=== PATIENT | female | born 1970 | race Caucasian/White ===

== ENCOUNTER 2018-06-23 14:14 | Emergency (ER) | payer OTHER ==
[2018-06-23] MEDS ORDERED: NA CHLORIDE 0.9% 1,000 ML ONE (15:04)
[2018-06-23 15:14] LABS: Absolute Lymphocytes (CBC) 3.1 K/uL (0.7-4.9); Absolute Monocytes 0.7 K/uL (0.1-1.3); Absolute Neutrophil 5.9 K/uL (1.8-8.0); Basophils % 0.2 % (0-1.3); Hematocrit 33.1 % (36.0-45.0); MCH 34.7 pg (27.0-35.0); MCV 100.7 fL (80-100); MPV 7.7 fL (7.6-11.3); Monocytes % 7.4 % (3.3-12.3); RBC Red Blood Cell Count 3.29 M/uL (3.86-4.86)
[2018-06-23 15:24] LABS: Potassium 3.9 mmol/L (3.5-5.1)
--- NOTE | 2018-06-23 16:31 | EDPHYS ---
Physician Documentation [facility] Name: Priya Payne Age: 47 yrs Sex: Female : 1970 Arrival Date: 06/23/2018 Time: 14:19 Bed Ultrasound Private MD: ED Physician Juan A Nieto HPI: 06/23 15:32 This 47 yrs old Female presents to ER via Ambulatory with complaints of kb Vaginal Bleeding. 15:32 The patient presents with vaginal bleeding that is moderate, with clots. Onset: The kb symptoms/episode began/occurred 7 day(s) ago. Modifying factors: The symptoms are alleviated by nothing, the symptoms are aggravated by nothing. Associated signs and symptoms: Pertinent positives: vaginal discharge. Severity of symptoms: At their worst the symptoms were moderate, in the emergency department the symptoms are unchanged. The patient has not experienced similar symptoms in the past. The patient has not recently seen a physician. Pt states she started her period on 06/17/18 and has been passing large clots. Reports symptoms improved for 2 days, but bleeding became heavier this morning and she passed another clot. Has appt with Dr Diaz on 07/31/18. Denies shortness of breath, dizziness, chest pain, abdominal pain. 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 - Social history:: Smoking status: Patient/guardian denies using tobacco. - Ebola Screening: : No symptoms or risks identified at this time. ROS: 15:32 Constitutional: Negative for fever, chills, and weight loss, Cardiovascular: Negative kb for chest pain, palpitations, and edema, Respiratory: Negative for shortness of breath, cough, wheezing, and pleuritic chest pain, Abdomen/GI: Negative for abdominal pain, nausea, vomiting, diarrhea, and constipation, Back: Negative for injury and pain, MS/Extremity: Negative for injury and deformity, Skin: Negative for injury, rash, and discoloration, Neuro: Negative for headache, weakness, numbness, tingling, and seizure. 15:32 : Positive for vaginal bleeding. Exam: 15:32 Constitutional: This is a well developed, well nourished patient who is awake, alert, kb and in no acute distress. Head/Face: Normocephalic, atraumatic. Chest/axilla: Normal chest wall appearance and motion. Nontender with no deformity. No lesions are appreciated. Cardiovascular: Regular rate and rhythm with a normal S1 and S2. No gallops, murmurs, or rubs. Normal PMI, no JVD. No pulse deficits. Respiratory: Lungs have equal breath sounds bilaterally, clear to auscultation and percussion. No rales, rhonchi or wheezes noted. No increased work of breathing, no retractions or nasal flaring. Abdomen/GI: Soft, non-tender, with normal bowel sounds. No distension or tympany. No guarding or rebound. No evidence of tenderness throughout. Back: No spinal tenderness. No costovertebral tenderness. Full range of motion. Skin: Warm, dry with normal turgor. Normal color with no rashes, no lesions, and no evidence of cellulitis. MS/ Extremity: Pulses equal, no cyanosis. Neurovascular intact. Full, normal range of motion. Neuro: Awake and alert, GCS 15, oriented to person, place, time, and situation. Cranial nerves II-XII grossly intact. Motor strength 5/5 in all extremities. Sensory grossly intact. Cerebellar exam normal. Normal gait. Vital Signs: 14:32 BP 157 / 96; Pulse 126; Resp 16 S; Temp 98.4(O); Pulse Ox 100% on R/A; Weight 81.65 kg jl7 (R); Height 5 ft. 5 in. (165.10 cm) (R); Pain 5/10; 15:29 Pulse 115; la1 15:31 BP 117 / 63; la1 16:48 BP 131 / 74; Pulse 102; Resp 16; Pulse Ox 100% on R/A; la1 14:32 Body Mass Index 29.95 (81.65 kg, 165.10 cm) 7 MDM: 14:36 Patient medically screened. [facility] 15:32 Data reviewed: vital signs, nurses notes. Data interpreted: Pulse oximetry: on room air kb is 100 %. Interpretation: normal. 16:29 Counseling: I had a detailed discussion with the patient and/or guardian regarding: the kb historical points, exam findings, and any diagnostic results supporting the discharge/admit diagnosis, lab results, radiology results, the need for outpatient follow up, an OB/Gyne specialist, to return to the emergency department if symptoms worsen or persist or if there are any questions or concerns that arise at home. ED course: Pt educated to keep appt with Dr Diaz. Return for shortness of breath, dizziness, or worsening symptoms. . 06/23 14:39 Order name: Basic Metabolic Panel; Complete Time: 15:28 kb 06/23 14:39 Order name: CBC with Diff; Complete Time: 15:46 kb 06/23 14:39 Order name: Type And Screen; Complete Time: 15:58 kb 06/23 15:13 Order name: Transvaginal Study (probe) kb 06/23 15:52 Order name: ABO/RH no charge; Complete Time: 15:58 EDMS 06/23 14:39 Order name: Urine Test (obtain specimen); Complete Time: 16:47 kb 06/23 14:39 Order name: IV Saline Lock; Complete Time: 14:59 kb 06/23 14:39 Order name: Labs collected and sent; Complete Time: 14:59 kb 06/23 14:39 Order name: NPO; Complete Time: 14:59 kb 06/23 14:39 Order name: Urine Dipstick-Ancillary (obtain specimen); Complete Time: 16:47 kb Administered Medications: 15:20 Drug: NS 0.9% 1000 ml Route: IV; Rate: 1000 ml; Site: right antecubital; la1 16:20 Follow up: IV Status: Completed infusion la1 Disposition: 06/24 11:34 Co-signature as Attending Physician, Juan A Nieto MD I agree with the assessment and costa plan of care. Disposition: 06/23/18 16:30 Discharged to Home. Impression: Abnormal uterine and vaginal bleeding, unspecified. - Condition is Stable. - Discharge Instructions: Abnormal Uterine Bleeding, [id number]. - Medication Reconciliation Form, Thank You Letter, Antibiotic Education, Prescription Opioid Use form. - Follow up: Emergency Department; When: As needed; Reason: Worsening of condition. Follow up: Misa Cam MD; When: on scheduled appt. Signatures: Dispatcher [employer] EDMS Nathalie Hooker, SITE TECHNICIAN-C SITE TECHNICIAN-Juan A Argueta MD MD cha Attema, Lee, RN RN la1 Arsen Sihn RN RN jl7 Corrections: (The following items were deleted from the chart) 08 16:31 16:30 06/23/2018 16:30 Discharged to Home. Impression: Abnormal uterine and vaginal kb bleeding, unspecified. Condition is Stable. Forms are Medication Reconciliation Form, Thank You Letter, Antibiotic Education, Prescription Opioid Use. Follow up: Emergency Department; When: As needed; Reason: Worsening of condition. Follow up: Private Physician; When: 2 - 3 days; Reason: Recheck today's complaints, Continuance of care, Re-evaluation by your physician. kb 16:48 16:31 06/23/2018 16:30 Discharged to Home. Impression: Abnormal uterine and vaginal la1 bleeding, unspecified. Condition is Stable. Discharge Instructions: Abnormal Uterine Bleeding, [id number]. Forms are Medication Reconciliation Form, Thank You Letter, Antibiotic Education, Prescription Opioid Use. Follow up: Emergency Department; When: As needed; Reason: Worsening of condition. Follow up: Misa Cam; When: on scheduled appt. kb
--- NOTE | 2018-06-23 16:31 | ER ---
Nurse's Notes [facility] Name: Priya Payne Age: 47 yrs Sex: Female : 1970 Arrival Date: 06/23/2018 Time: 14:19 Bed Ultrasound Private MD: Diagnosis: Abnormal uterine and vaginal bleeding, unspecified Presentation: 06/23 14:29 Presenting complaint: Patient states: Reports heaving period since June 17 with a jl7 lot of large orange-sized clots and cramping and left flank pain. Denies urinary symptoms, denies N/V/D. Transition of care: patient was not received from another setting of care. Onset of symptoms was June 17, 2018. Risk Assessment: Do you want to hurt yourself or someone else? Patient reports no desire to harm self or others. Initial Sepsis Screen: Does the patient meet any 2 criteria? No. Patient's initial sepsis screen is negative. Does the patient have a suspected source of infection? No. Patient's initial sepsis screen is negative. Care prior to arrival: None. 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 - Social history:: Smoking status: Patient/guardian denies using tobacco. - Ebola Screening: : No symptoms or risks identified at this time. Screenin:07 Abuse screen: Denies threats or abuse. Nutritional screening: No deficits noted. la1 Tuberculosis screening: No symptoms or risk factors identified. Fall Risk None identified. Assessment: 15:07 General: Appears uncomfortable, Behavior is calm, cooperative. Pain: Denies pain. la1 Neuro: Level of Consciousness is awake, alert, obeys commands, Oriented to person, place, time, situation. Cardiovascular: Capillary refill < 3 seconds Patient's skin is warm and dry. Respiratory: Airway is patent Respiratory effort is even, unlabored, Respiratory pattern is regular, symmetrical. GI: Abdomen is round non-distended, Bowel sounds present X 4 quads. Abd is soft and non tender X 4 quads. : Last void was June 23, 2018. Reports vaginal bleeding that is with clots, heavy flow. EENT: No deficits noted. No signs and/or symptoms were reported regarding the EENT system. Derm: No signs and/or symptoms reported regarding the dermatologic system. 15:21 Reassessment: Patient appears in no apparent distress at this time. No changes from la1 previously documented assessment. Vital Signs: 14:32 BP 157 / 96; Pulse 126; Resp 16 S; Temp 98.4(O); Pulse Ox 100% on R/A; Weight 81.65 kg jl7 (R); Height 5 ft. 5 in. (165.10 cm) (R); Pain 5/10; 15:29 Pulse 115; la1 15:31 BP 117 / 63; la1 16:48 BP 131 / 74; Pulse 102; Resp 16; Pulse Ox 100% on R/A; la1 14:32 Body Mass Index 29.95 (81.65 kg, 165.10 cm) jl7 ED Course: 14:19 Patient arrived in ED. tw3 14:28 Arsen Shin, NELLY is Primary Nurse. jl7 14:31 Triage completed. jl7 14:32 Nathalie Hooker FNP-C [facility]. kb 14:32 Juan A Nieto MD is Attending Physician. kb 14:32 Arm band placed on right wrist. jl7 15:06 Brayden Mckenzie, NELLY is Primary Nurse. la1 15:06 No provider procedures requiring assistance completed. Inserted saline lock: 22 gauge la1 in right antecubital area, using aseptic technique. Blood collected. 15:07 Bed in low position. Call light in reach. Side rails up X 1. Pulse ox on. NIBP on. la1 16:11 Transvaginal Study (probe) In Process Unspecified. EDMS 16:31 Misa Cam MD is Referral Physician. kb 16:46 Urine collected: clean catch specimen, clear, franchesca colored. jp3 16:48 IV discontinued, intact, bleeding controlled, No redness/swelling at site. Pressure la1 dressing applied. Administered Medications: 15:20 Drug: NS 0.9% 1000 ml Route: IV; Rate: 1000 ml; Site: right antecubital; la1 16:20 Follow up: IV Status: Completed infusion la1 Outcome: 16:30 Discharge ordered by MD. monroe 16:48 Discharged to home ambulatory. la1 16:48 Condition: stable 16:48 Discharge instructions given to patient, Instructed on discharge instructions, follow up and referral plans. Demonstrated understanding of instructions, follow-up care. 16:48 Patient left the ED. la1 Signatures: Dispatcher [employer] EDMS Nathalie Hooker, TAMI-C UTILIZATION MANAGER-Brayden Beal RN RN la1 Arsen Sihn RN RN tae7 Gisel Love 3 Michel Villafuerte jp3
--- NOTE | 2018-06-23 20:01 | RAD REPORT ---
EXAM DESCRIPTION: US - Transvaginal Study Probe - 06/23/2018 4:11 pm CLINICAL HISTORY: Vaginal bleeding. Preliminary findings provided at the time of the study. COMPARISON: None. TECHNIQUE: Endovaginal sonography was performed. FINDINGS: Uterus is 10.6 x 6.9 x 7.0 cm. No discrete myometrial mass identifiable. Endometrial cavit y is dilated and enlarged with a 5 centimeter echogenic mass. This may be a pronounced endometrial hy perplasia or endometrial mass. Simple hematoma is less likely. The endometrium - myometrium interface does appear to be preserved. No ovarian tissue is clearly defined. A 2.8 centimeter thin-walled cystic mass in the right adnexa is identified but is not associated with any ovarian tissue. This is probably a paraovarian cyst. No fr ee fluid in the cul-de-sac. IMPRESSION: Dilated endometrial cavity from pronounced endometrial hyperplasia or possible endometri al mass. Hematoma is a lesser consideration. Nonvisualization of either ovary. A 2.8 centimeter right paraovarian cyst is seen.
== END 2018-06-23 16:48 | disposition home or self-care (01) ==
LOC: ER 14:14
DX: N93.9 Abnormal uterine and vaginal bleeding, unspecified (principal); I10 Essential (primary) hypertension; E11.9 Type 2 diabetes mellitus without complications; E78.5 Hyperlipidemia, unspecified; Z88.0 Allergy status to penicillin; Z88.2 Allergy status to sulfonamides
CPT/HCPCS: 36415; 76830; 80048; 85025; 86850; 86900; 86901; 96360; 99284; J7030

== ENCOUNTER 2018-08-04 11:18 | Emergency (ER) | payer OTHER ==
[2018-08-04] MEDS ORDERED: MORPHINE 4 MG/ML SYR ONE ×2 (12:21→14:46)
[2018-08-04] MEDS ORDERED: NA CHLORIDE 0.9% 1,000 ML ONE ×2 (12:21→14:47)
[2018-08-04] MEDS ORDERED: ONDANSETRON 4 MG/2 ML VIAL ONE ×2 (12:21→14:46)
[2018-08-04] MEDS ORDERED: ACETAMINOPHEN 500 MG TAB ONE (12:22)
[2018-08-04 12:23] LABS: Absolute Lymphocytes (CBC) 0.5 K/uL (0.7-4.9); Absolute Monocytes 0.9 K/uL (0.1-1.3); Basophils % 0.1 % (0-1.3); Hematocrit 29.8 % (36.0-45.0); Lymphocytes % 3.6 % (15.3-44.8); MCH 33.7 pg (27.0-35.0); MCV 97.2 fL (80-100); MPV 7.8 fL (7.6-11.3); Monocytes % 5.5 % (3.3-12.3); RBC Red Blood Cell Count 3.06 M/uL (3.86-4.86)
[2018-08-04 12:42] LABS: Albumin 3.8 g/dL (3.4-5.0); Bilirubin Direct 0.2 mg/dL (0-0.2); Bilirubin Total 0.6 mg/dL (0.2-1.0); Potassium 3.8 mmol/L (3.5-5.1); Protein, Total 8.1 g/dL (6.4-8.2)
[2018-08-04 13:01] LABS: Blood Morphology Comment NOT SEEN (NOT SEEN); Platelet Estimate ADEQ; Urine White Blood Cell Casts OK
--- NOTE | 2018-08-04 13:35 | RAD REPORT ---
EXAM DESCRIPTION: CT - Abdomen Pelvis W Contrast - 08/04/2018 1:23 pm CLINICAL HISTORY: Abdominal pain/lower abdominal pain with vomiting and diarrhea COMPARISON: 08/02/2018 ultrasound TECHNIQUE: Computed axial tomography of the abdomen pelvis was obtained. 100 cc Isovue-300 was admin istered intravenously. Oral contrast was not requested which limits evaluation of bowel. All CT scans are performed using dose optimization technique as appropriate and may include automated exposure control or mA/KV adjustment according to patient size. FINDINGS: The liver, spleen, pancreas, adrenal and kidneys appear unremarkable. There is no evidence of diverticulitis. The appendix is normal The endometrial canal is heterogeneous and thickened. It contains air IMPRESSION: Thickened and heterogeneous endometrial canal containing air may indicate an infection. A ain necrotic mass is a another consideration but probably is less likely. This all should be correl ated clinically.
[2018-08-04 13:51] LABS: Urine Blood 3+ (NEG); Urine Glucose NEGATIVE (NEG); Urine Protein 1+ (NEG); Urine pH 6.5 (5.0-7.0)
[2018-08-04] MEDS ORDERED: DOXYCYCLINE 100 MG CAP PO ONE (14:30)
[2018-08-04] MEDS ORDERED: IBUPROFEN 200 MG TAB PO ONE (14:46)
[2018-08-04] MEDS ORDERED: IBUPROFEN 400 MG TAB ONE (14:46)
--- NOTE | 2018-08-04 15:02 | EDPHYS ---
Physician Documentation [facility] Name: Priya Payne Age: 47 yrs Sex: Female : 1970 Arrival Date: 08/04/2018 Time: 11:20 Bed 19 Private MD: ED Physician Juan A Nieto HPI: 08/04 12:16 This 47 yrs old Female presents to ER via Ambulatory with complaints of kb Abdominal Cramping, Vomiting. 12:16 The patient presents with abdominal pain in the lower abdomen. Onset: The kb symptoms/episode began/occurred today, at 11:00. The symptoms do not radiate. Associated signs and symptoms: Pertinent positives: nausea and vomiting, vaginal bleeding. The symptoms are described as constant. Modifying factors: The symptoms are alleviated by nothing, the symptoms are aggravated by pressure. Severity of pain: At its worst the pain was moderate in the emergency department the pain is unchanged. The patient has not experienced similar symptoms in the past. The patient has not recently seen a physician. pt c/o nausea and vomiting since 1100. States she is still having vaginal bleeding that started 06/17/18 (seeing Dr Cam for that). . 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 - Social history:: Smoking status: Patient/guardian denies using tobacco. - Ebola Screening: : No symptoms or risks identified at this time. ROS: 12:14 Cardiovascular: Negative for chest pain, palpitations, and edema, Respiratory: Negative kb for shortness of breath, cough, wheezing, and pleuritic chest pain, Back: Negative for injury and pain, : Negative for injury, bleeding, discharge, and swelling, MS/Extremity: Negative for injury and deformity, Skin: Negative for injury, rash, and discoloration, Neuro: Negative for headache, weakness, numbness, tingling, and seizure. 12:14 Constitutional: Positive for fever, Negative for body aches, chills, fatigue, malaise, poor PO intake, weight loss. 12:14 Abdomen/GI: Positive for abdominal pain, nausea and vomiting. Exam: 12:15 Head/Face: Normocephalic, atraumatic. Chest/axilla: Normal chest wall appearance and kb motion. Nontender with no deformity. No lesions are appreciated. Cardiovascular: Regular rate and rhythm with a normal S1 and S2. No gallops, murmurs, or rubs. Normal PMI, no JVD. No pulse deficits. Respiratory: Lungs have equal breath sounds bilaterally, clear to auscultation and percussion. No rales, rhonchi or wheezes noted. No increased work of breathing, no retractions or nasal flaring. Skin: Warm, dry with normal turgor. Normal color with no rashes, no lesions, and no evidence of cellulitis. MS/ Extremity: Pulses equal, no cyanosis. Neurovascular intact. Full, normal range of motion. Neuro: Awake and alert, GCS 15, oriented to person, place, time, and situation. Cranial nerves II-XII grossly intact. Motor strength 5/5 in all extremities. Sensory grossly intact. Cerebellar exam normal. Normal gait. 12:15 Constitutional: The patient appears alert, awake, in obvious pain, uncomfortable. 12:15 Abdomen/GI: Inspection: abdomen appears normal, Palpation: soft, in all quadrants, moderate abdominal tenderness, in the right upper quadrant, right lower quadrant and left lower quadrant. Vital Signs: 11:37 BP 143 / 65; Pulse 130; Resp 20 S; Temp 102.1(O); Pulse Ox 100% on R/A; Weight 79.38 kg aa5 (R); Height 5 ft. 5 in. (165.10 cm) (R); Pain 10/10; 11:51 BP 145 / 67; Pulse 121; Resp 18; Pulse Ox 100% on R/A; hj 12:30 BP 133 / 72; Pulse 120; Resp 18; Pulse Ox 99% on R/A; hj 13:47 BP 133 / 69; Pulse 119; Resp 18; Temp 100.9(O); Pulse Ox 99% on R/A; hj 14:59 BP 110 / 65; Pulse 114; Resp 18; Temp 100.7(O); Pulse Ox 100% on R/A; hj 15:43 BP 109 / 52; Pulse 114; Resp 18; Pulse Ox 100% on R/A; hj 16:09 BP 106 / 56; Pulse 115; Resp 18; Pulse Ox 100% on R/A; hj 16:17 BP 108 / 75; Pulse 98; Resp 16 S; Temp 98.9; Pulse Ox 98% on R/A; Pain 0/10; iw 11:37 Body Mass Index 29.12 (79.38 kg, 165.10 cm) aa5 MDM: 11:41 Patient medically screened. costa 12:13 Data reviewed: vital signs, nurses notes. Data interpreted: Pulse oximetry: on room air kb is 100 %. Interpretation: normal. 15:00 Counseling: I had a detailed discussion with the patient and/or guardian regarding: the kb historical points, exam findings, and any diagnostic results supporting the discharge/admit diagnosis, lab results, radiology results, the need for outpatient follow up, an OB/Gyne specialist, to return to the emergency department if symptoms worsen or persist or if there are any questions or concerns that arise at home. Physician consultation: Misa Cam MD was contacted at 14:30, regarding consult, patient's condition, and will see patient in inpatient room, shortly. 08/04 11:56 Order name: Basic Metabolic Panel; Complete Time: 12:47 kb 08/04 11:56 Order name: CBC with Diff; Complete Time: 13:03 kb 08/04 11:56 Order name: Hepatic Function; Complete Time: 12:47 kb 08/04 11:56 Order name: Lipase; Complete Time: 12:47 kb 08/04 12:25 Order name: CBC Smear Scan; Complete Time: 13:03 EDMS 08/04 13:16 Order name: Urine Dipstick--Ancillary (enter results); Complete Time: 13:52 bd 08/04 11:56 Order name: CT Abd/Pelvis - W/Contrast; Complete Time: 13:36 kb 08/04 13:16 Order name: Urine --Ancillary (enter results); Complete Time: 13:52 bd 08/04 11:56 Order name: IV Saline Lock; Complete Time: 12:12 kb 08/04 11:56 Order name: Labs collected and sent; Complete Time: 12:12 kb 09/24 11:56 Order name: Urine Test (obtain specimen); Complete Time: 13:37 kb 08/04 11:56 Order name: Urine Dipstick-Ancillary (obtain specimen); Complete Time: 13:37 kb 08/04 13:46 Order name: Vital Signs; Complete Time: 13:47 kb Administered Medications: 12:12 Drug: NS 0.9% 1000 ml Route: IV; Rate: 1000 ml; Site: left upper arm; hj 12:12 Drug: Zofran 4 mg Route: IVP; Site: left upper arm; hj 13:50 Follow up: Response: No adverse reaction hj 12:12 Drug: morphine 4 mg Route: IVP; Site: left upper arm; hj 13:50 Follow up: Response: No adverse reaction hj 12:12 Drug: Tylenol 1000 mg Route: PO; hj 13:49 Follow up: Response: No adverse reaction; Temperature is decreased hj 14:21 Drug: Doxycycline 100 mg Route: PO; hj 14:28 Follow up: Response: No adverse reaction hj 14:31 Drug: morphine 4 mg Route: IVP; Site: left upper arm; hj 15:06 Follow up: Response: No adverse reaction; Pain is decreased hj 14:31 Drug: Zofran 4 mg Route: IVP; Site: left upper arm; hj 15:06 Follow up: Response: No adverse reaction; Nausea is decreased hj 14:31 Drug: NS 0.9% 1000 ml Route: IV; Rate: 1000 ml; Site: left upper arm; hj 16:23 Follow up: IV Status: Completed infusion; IV Intake: 1000ml hj 14:31 Drug: Ibuprofen 600 mg Route: PO; hj 15:06 Follow up: Response: No adverse reaction hj Disposition: 08/05 07:51 Co-signature as Attending Physician, Juan A Nieto MD I agree with the assessment and costa plan of care. Disposition: 08/04/18 15:01 Discharged to Home. Impression: Abnormal uterine and vaginal bleeding, unspecified, Fever, unspecified. - Condition is Stable. - Discharge Instructions: Abnormal Uterine Bleeding, [id number]. - Prescriptions for Tylenol- Codeine #3 300-30 mg Oral Tablet - take 2 tablet by ORAL route every 6 hours As needed; 30 tablet. Zofran 4 mg Oral Tablet - take 1 tablet by ORAL route every 6 hours As needed; 20 tablet. Doxycycline Hyclate 100 mg Oral Tablet - take 1 tablet by ORAL route every 12 hours; 20 tablet. - Medication Reconciliation Form, Thank You Letter, Antibiotic Education, Prescription Opioid Use form. - Follow up: Emergency Department; When: As needed; Reason: Worsening of condition. Follow up: Private Physician; When: 2 - 3 days; Reason: Recheck today's complaints, Continuance of care, Re-evaluation by your physician. Follow up: Misa Cam MD; When: Upon discharge from the Emergency Department; Reason: Recheck today's complaints. Signatures: Dispatcher [employer] EDMS Nathalie Hooker, SPIN TABLE OPERATOR-C SPIN TABLE OPERATOR-Ckb Juan A Nieto MD MD cha Calderon, Audri RN RN aa5 Sam Perdomo RN RN hj Corrections: (The following items were deleted from the chart) 08/04 15:03 15:01 08/04/2018 15:01 Discharged to Home. Impression: Abnormal uterine and vaginal kb bleeding, unspecified; Fever, unspecified. Condition is Stable. Forms are Medication Reconciliation Form, Thank You Letter, Antibiotic Education, Prescription Opioid Use. Follow up: Emergency Department; When: As needed; Reason: Worsening of condition. Follow up: Private Physician; When: 2 - 3 days; Reason: Recheck today's complaints, Continuance of care, Re-evaluation by your physician. kb 16:23 15:03 08/04/2018 15:01 Discharged to Home. Impression: Abnormal uterine and vaginal hj bleeding, unspecified; Fever, unspecified. Condition is Stable. Discharge Instructions: Abnormal Uterine Bleeding, [id number]. Prescriptions for Tylenol-Codeine #3 300-30 mg Oral Tablet - take 2 tablet by ORAL route every 6 hours As needed; 30 tablet, Zofran 4 mg Oral Tablet - take 1 tablet by ORAL route every 6 hours As needed; 20 tablet, Doxycycline Hyclate 100 mg Oral Tablet - take 1 tablet by ORAL route every 12 hours; 20 tablet. and Forms are Medication Reconciliation Form, Thank You Letter, Antibiotic Education, Prescription Opioid Use. Follow up: Emergency Department; When: As needed; Reason: Worsening of condition. Follow up: Private Physician; When: 2 - 3 days; Reason: Recheck today's complaints, Continuance of care, Re-evaluation by your physician. Follow up: Mini Rekhi; When: Upon discharge from the Emergency Department; Reason: Recheck today's complaints. kb
--- NOTE | 2018-08-04 15:02 | ER ---
Nurse's Notes [facility] Name: Priya Payne Age: 47 yrs Sex: Female : 1970 Arrival Date: 08/04/2018 Time: 11:20 Bed 19 Private MD: Diagnosis: Abnormal uterine and vaginal bleeding, unspecified;Fever, unspecified Presentation: 08/04 11:36 Presenting complaint: Patient states: lower abd pain and nausea/vomiting/diarrhea. Pt aa5 reports chills. Pt states "I've been on my period since June 17. Transition of care: patient was not received from another setting of care. Onset of symptoms was July 2018. Risk Assessment: Do you want to hurt yourself or someone else? Patient reports no desire to harm self or others. Care prior to arrival: None. 11:36 Method Of Arrival: Ambulatory aa5 11:36 Acuity: KENNY 2 aa5 11:45 Initial Sepsis Screen: Does the patient meet any 2 criteria? Temp <36.0*C (96.8*F)) or hj > 38.3*C (100.4*F). HR > 90 bpm. Does the patient have a suspected source of infection? Yes:. Triage Assessment: 11:44 General: Appears in no apparent distress. uncomfortable, Behavior is calm, cooperative, hj appropriate for age. Pain: Complains of pain in abdomen Pain radiates to back. EENT: No signs and/or symptoms were reported regarding the EENT system. Neuro: Level of Consciousness is awake, alert, obeys commands, Oriented to person, place, time, situation, Appropriate for age. Cardiovascular: Capillary refill < 3 seconds Patient's skin is warm and dry. Respiratory: Airway is patent Respiratory effort is even, unlabored, Respiratory pattern is regular, symmetrical. GI: Reports lower abdominal pain, nausea, vomiting. : No signs and/or symptoms were reported regarding the genitourinary system. Derm: No signs and/or symptoms reported regarding the dermatologic system. Musculoskeletal: No signs and/or symptoms reported regarding the musculoskeletal system. 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 - Social history:: Smoking status: Patient/guardian denies using tobacco. - Ebola Screening: : No symptoms or risks identified at this time. Screenin:44 Abuse screen: Denies threats or abuse. Denies injuries from another. Nutritional hj screening: No deficits noted. Tuberculosis screening: No symptoms or risk factors identified. Fall Risk None identified. Assessment: 11:45 GI: Bowel sounds present X 4 quads. Abd is soft Abdomen is tender to palpation. hj 11:46 Reassessment: provider in room;. hj 12:30 Reassessment: Patient and/or family updated on plan of care and expected duration. Pain hj level reassessed. Patient is alert, oriented x 3, equal unlabored respirations, skin warm/dry/pink. 13:30 Reassessment: Patient and/or family updated on plan of care and expected duration. Pain hj level reassessed. Patient is alert, oriented x 3, equal unlabored respirations, skin warm/dry/pink. awaiting results and POC; temp- 100.9. 14:11 Reassessment: Patient and/or family updated on plan of care and expected duration. Pain hj level reassessed. Patient is alert, oriented x 3, equal unlabored respirations, skin warm/dry/pink. awaiting POC;. 15:05 Reassessment: for D/C; awaiting 1L NS to be finished before D/C;. hj 16:09 Reassessment: Patient and/or family updated on plan of care and expected duration. Pain hj level reassessed. Patient is alert, oriented x 3, equal unlabored respirations, skin warm/dry/pink. 250ml of NS left to be finished;. Vital Signs: 11:37 BP 143 / 65; Pulse 130; Resp 20 S; Temp 102.1(O); Pulse Ox 100% on R/A; Weight 79.38 kg aa5 (R); Height 5 ft. 5 in. (165.10 cm) (R); Pain 10/10; 11:51 BP 145 / 67; Pulse 121; Resp 18; Pulse Ox 100% on R/A; hj 12:30 BP 133 / 72; Pulse 120; Resp 18; Pulse Ox 99% on R/A; hj 13:47 BP 133 / 69; Pulse 119; Resp 18; Temp 100.9(O); Pulse Ox 99% on R/A; hj 14:59 BP 110 / 65; Pulse 114; Resp 18; Temp 100.7(O); Pulse Ox 100% on R/A; hj 15:43 BP 109 / 52; Pulse 114; Resp 18; Pulse Ox 100% on R/A; hj 16:09 BP 106 / 56; Pulse 115; Resp 18; Pulse Ox 100% on R/A; hj 16:17 BP 108 / 75; Pulse 98; Resp 16 S; Temp 98.9; Pulse Ox 98% on R/A; Pain 0/10; iw 11:37 Body Mass Index 29.12 (79.38 kg, 165.10 cm) aa5 ED Course: 11:20 Patient arrived in ED. rg4 11:34 Nathalie Hooker FNP-C is PHCP. kb 11:34 Juan A Nieto MD is Attending Physician. kb 11:37 Triage completed. aa5 11:37 Arm band placed on. aa5 11:43 Sam Perdomo, NELLY is Primary Nurse. hj 11:45 Patient has correct armband on for positive identification. Placed in gown. Bed in low hj position. Call light in reach. Side rails up X 1. Adult w/ patient. 12:10 Initial lab(s) drawn, by me, sent to lab. Inserted saline lock: 24 gauge in left upper hj arm, using aseptic technique. Blood collected. 12:52 Radiology exam delayed due to test not completed at this time. vr 13:15 Urine collected: clean catch specimen, clear. mh5 13:21 CT completed. Patient tolerated procedure well. Patient moved to CT via wheelchair. Patient moved back from CT. 13:23 CT Abd/Pelvis - W/Contrast In Process Unspecified. EDMS 13:51 Urine --Ancillary (enter results) Sent. 5 13:51 Urine Dipstick--Ancillary (enter results) Sent. 5 15:03 Misa Cam MD is Referral Physician. kb 16:22 No provider procedures requiring assistance completed. IV discontinued, intact, hj bleeding controlled, No redness/swelling at site. Pressure dressing applied. Administered Medications: 12:12 Drug: NS 0.9% 1000 ml Route: IV; Rate: 1000 ml; Site: left upper arm; hj 12:12 Drug: Zofran 4 mg Route: IVP; Site: left upper arm; hj 13:50 Follow up: Response: No adverse reaction hj 12:12 Drug: morphine 4 mg Route: IVP; Site: left upper arm; hj 13:50 Follow up: Response: No adverse reaction hj 12:12 Drug: Tylenol 1000 mg Route: PO; hj 13:49 Follow up: Response: No adverse reaction; Temperature is decreased hj 14:21 Drug: Doxycycline 100 mg Route: PO; hj 14:28 Follow up: Response: No adverse reaction hj 14:31 Drug: morphine 4 mg Route: IVP; Site: left upper arm; hj 15:06 Follow up: Response: No adverse reaction; Pain is decreased hj 14:31 Drug: Zofran 4 mg Route: IVP; Site: left upper arm; hj 15:06 Follow up: Response: No adverse reaction; Nausea is decreased hj 14:31 Drug: NS 0.9% 1000 ml Route: IV; Rate: 1000 ml; Site: left upper arm; hj 16:23 Follow up: IV Status: Completed infusion; IV Intake: 1000ml hj 14:31 Drug: Ibuprofen 600 mg Route: PO; hj 15:06 Follow up: Response: No adverse reaction hj Intake: 16:23 IV: 1000ml; Total: 1000ml. hj Outcome: 15:01 Discharge ordered by . kb 16:22 Discharged to home ambulatory, with family. hj 16:22 Condition: stable 16:22 Discharge instructions given to patient, family, Instructed on discharge instructions, follow up and referral plans. medication usage, Demonstrated understanding of instructions, follow-up care, medications, Prescriptions given X 3. 16:23 Patient left the ED. hj Signatures: Dispatcher [employer] EDHI Nathalie Hooker FNP-C FNP-Ckb Jones, Susan sj Williams, Irene, RN RN iw Calderon, Audri, RN RN Maria Antonia Bustillo Henry, RN RN hj Garcia, Rubi rg4 Martinez, Maria [facility] Corrections: (The following items were deleted from the chart) 11:39 11:36 Presenting complaint: Patient states: lower abd pain and aa5 nausea/vomiting/diarrhea. Pt reports chills aa5
== END 2018-08-04 16:23 | disposition home or self-care (01) ==
LOC: ER 11:18
DX: N93.9 Abnormal uterine and vaginal bleeding, unspecified (principal); I10 Essential (primary) hypertension; E78.5 Hyperlipidemia, unspecified; E11.9 Type 2 diabetes mellitus without complications; Z88.0 Allergy status to penicillin; Z88.2 Allergy status to sulfonamides
CPT/HCPCS: 36415; 74177; 80048; 80076; 81003; 81025; 83690; 85025; 96361; 96374; 96375; 99284; J2405; J7030; Q9967